=== PATIENT | male | born 1960 | race Hispanic/Latino ===

== ENCOUNTER 2017-12-16 20:15 | Emergency (ER) | payer OTHER ==
[2017-12-16 20:55] LABS: #Eosinphils 0.1 thou/uL (0.0-0.7); #Lymphocytes 0.7 thou/uL (1.20-3.40); #Monocytes 0.6 thou/uL (0.11-0.59); #Neutrophils 5.4 thou/uL (1.40-6.50); %Basophils 0.6 % (0.0-1.0); %Lymphocytes 10.2 % (21.0-51.0); %Monocytes 8.2 % (0.0-10.0); Hemoglobin 15.8 g/dL (14.0-18.0); Mean Corpuscular HGB CONC 34.7 g/dL (32.0-36.0); Mean Corpuscular Hemoglobin 33.6 pg (27.0-31.0); Mean Corpuscular Volume 96.8 fl (80.0-94.0); Platelet Count 157 thou/uL (130-400); RBC Distribution Width 11.4 % (11.5-14.5); White Blood Cell (WBC) Count 6.7 thou/uL (4.8-10.8)
--- NOTE | 2017-12-16 21:11 | RAD ---
SINGLE VIEW OF THE CHEST 12/16/17 COMPARISON: None. HISTORY: Hyperglycemia and fever. FINDINGS: Single view of the chest shows a normal sized cardiomediastinal silhouette. There is no evidence of c onsolidation, mass, or pleural effusion. The bones are unremarkable. IMPRESSION: No evidence of acute cardiopulmonary disease. POS: [facility]
[2017-12-16 21:19] LABS: ALT (SGPT) 35 U/L (8-55); AST (SGOT) 35 U/L (5-34); Albumin 3.6 g/dL (3.5-5.0); Alkaline Phosphatase 143 U/L (40-150); Anion Gap 12 mmol/L (10-20); BUN (Urea Nitrogen) 16 mg/dL (8.4-25.7); Bilirubin, Total 0.9 mg/dL (0.2-1.2); Calc. Creatinine Clearance 0 mL/min (70-130); Calcium 9.1 mg/dL (7.8-10.44); Carbon Dioxide 24 mmol/L (22-29); Chloride 101 mmol/L (98-107); Estimated GFR-MDRD 67; Globulin 4.5 g/dL (2.4-3.5); Glucose 345 mg/dL (70-105); Protein, Total 8.1 g/dL (6.0-8.3); Sodium 133 mmol/L (136-145)
[2017-12-16 21:29] LABS: Bilirubin Negative (Negative); Blood, Urine Negative (Negative); Clarity CLEAR (Clear); Glucose, Urine (Dipstick) 250 mg/dL (Negative); Leukocyte Moderate (Negative); Nitrite Negative (Negative); Protein, Urine (Dipstick) Negative (Neg-Trace); Specific Gravity, Urine 1.018 (1.002-1.036)
[2017-12-16 21:31] LABS: Bacteria/HPF None Seen HPF (None Seen); Hyaline Casts/LPF 7-10 HYALINE CAST LPF (0-3 Hyaline); Pathc Cast-AUWi Flag 1.21 (0-2.49); RBC/HPF 0-3 HPF (0-3); Squamous Epithelial 0-3 HPF (0-3)
[2017-12-16] MEDS ORDERED: Ibuprofen 200 MG TAB ONE (21:41)
[2017-12-16] MEDS ORDERED: Acetaminophen 500 MG TAB ONE (21:41)
[2017-12-16] MEDS ORDERED: Insulin Regular 300 UNITS/3 ML VIAL ONE (23:10)
[2017-12-17 05:36] LABS: Base Excess-Venous -0.3 mmol/L (-30.0-30.0); Bicarbonate (HCO3v) 26.9 mmol/L (1.0-85.0); CO2 Tension (PvCO2) 51.7 mmHg (41.0-51.0); Calcium, Ionized 1.19 mmol/L (1.12-1.32); Hemoglobin - Calc 17.3 g/dL (12.0-18.0); Potassium 4.5 mmol/L (3.4-4.7); T. Carbon Dioxide 28.5 mmol/L (1.0-85.0); pH (Venous) 7.324 (7.35-7.45); vO2 Saturation-calc 37.2 % (0.0-100.0)
[2017-12-18 13:04] LABS: Chlamydia by PCR Not Detected (NotDetected); GC by PCR Not Detected (NotDetected)
== END 2017-12-16 23:58 ==
LOC: ERS 20:15
DX: N39.0 Urinary tract infection, site not specified (principal); E11.65 Type 2 diabetes mellitus with hyperglycemia; E78.00 Pure hypercholesterolemia, unspecified
CPT/HCPCS: 36415; 36416; 71045; 80053; 81003; 81015; 82010; 82330; 82435; 82803; 83605; 84132; 84295; 85014; 85025; 87040; 87077; 87086; 87491; 87591; 93005; 94640; 96361; 96374; 96375; J0696; J1815; J7620